=== PATIENT | male | born 1965 | race Caucasian/White ===

== ENCOUNTER 2017-05-08 00:05 | Emergency (ER) | payer MEDICARE, MEDICAID ==
[~2017-05-08] VITALS: Ht 188 cm; Wt 110.0 kg
[~2017-05-08 00:05] MED LIST: BACL10TA PO; CLON-527 PO; MORP30TA PO; PHE12.5T PO
[2017-05-08] MEDS ORDERED: ondansetron 4mg rapidly disintigrating tab PO ONE (00:20)
[2017-05-08] MEDS ORDERED: cloNIDine 0.1 mg tablet PO ONE (00:20)
[2017-05-08] MEDS ORDERED: ONDA8TAB9 PO (00:22)
[2017-05-08] MEDS ORDERED: CLON-529 PO (00:22)
[2017-05-08 01:15] VITALS: BP 112/67
== END 2017-05-08 01:43 | disposition home or self-care (01) ==
LOC: ER 00:06
DX: F11.23 Opioid dependence with withdrawal (principal); G89.29 Other chronic pain; J45.909 Unspecified asthma, uncomplicated; Z88.8 Allergy status to other drugs, medicaments and biological substances; Z91.040 Latex allergy status
CPT/HCPCS: 99284

== ENCOUNTER 2019-04-23 22:30 | Emergency (ER) | payer MEDICAID, MEDICARE ==
[~2019-04-23] VITALS: Ht 188 cm; Wt 113.6 kg
[~2019-04-23 22:30] MED LIST changes: +CLON-529 PO; +ONDA8TAB9 PO; -PHE12.5T PO; +PROM12.512 PO
[2019-04-23 22:33] VITALS: BP 166/115
[2019-04-23] MEDS ORDERED: ondansetron 4mg rapidly disintigrating tab PO STA (22:43)
[2019-04-23] MEDS ORDERED: ondansetron 4mg rapidly disintigrating tab PO ONE (23:05)
[2019-04-23] MEDS ORDERED: cloNIDine 0.1 mg tablet PO ONE (23:10)
[2019-04-23] MEDS ORDERED: ketorolac trometh. 30mg/ml inj. IM ONE (23:10)
[2019-04-24] MEDS ORDERED: proCHLORperazine 10 MG/2 ml inj IM ONE (00:50)
[2019-04-24] MEDS ORDERED: ONDA8TAB13 PO (01:02)
== END 2019-04-24 01:18 | disposition home or self-care (01) ==
LOC: ER 22:30
DX: F11.23 Opioid dependence with withdrawal (principal); J45.909 Unspecified asthma, uncomplicated; G89.29 Other chronic pain; Z98.890 Other specified postprocedural states; Z91.040 Latex allergy status; Z88.8 Allergy status to other drugs, medicaments and biological substances; Z79.899 Other long term (current) drug therapy
CPT/HCPCS: 96372; 99284; J0780; J1885

== ENCOUNTER 2024-07-19 20:13 | Emergency (ER) | payer MEDICARE ==
[~2024-07-19] VITALS: Ht 188 cm; Wt 116.3 kg
[~2024-07-19 20:13] MED LIST changes: +ONDA-245 PO
[2024-07-19 20:53] LABS: BASOPHILS # (AUTO) 0.1 X10'3 (0-0.2); BASOPHILS % (AUTO) 0.5 % (0-1); EOSINOPHILS # (AUTO) 0.2 X10'3 (0-0.9); EOSINOPHILS % (AUTO) 1.7 % (0-6); HEMATOCRIT 50.1 % (42.0-52.0); LYMPHOCYTES # (AUTO) 4.8 X10'3 (1.1-4.8); LYMPHOCYTES % (AUTO) 40.6 % (21-51); MEAN CORPUSCULAR HEMOGLOBIN 30.5 PG (27.0-31.0); MEAN CORPUSCULAR VOLUME 89.8 FL (78-98); MONOCYTES # (AUTO) 0.9 X10'3 (0-0.9); MONOCYTES % (AUTO) 7.8 % (2-12); NEUTROPHILS # (AUTO) 5.9 X10'3 (1.8-7.7); NEUTROPHILS % (AUTO) 49.4 % (42-75); PLATELET COUNT 307 X10'3 (140-440); RED BLOOD COUNT 5.58 X10'6 (4.70-6.10); RED CELL DISTRIBUTION WIDTH 13.3 % (11.5-14.5); WHITE BLOOD COUNT 11.9 X10'3 (4.5-11.0)
[2024-07-19] MEDS ORDERED: LEVO125T8 PO (20:53)
[2024-07-19] MEDS ORDERED: TRAM50TA2 PO (20:53)
[2024-07-19 21:09] LABS: ALANINE AMINOTRANSFERASE 39 U/L (12-78); ALBUMIN/GLOBULIN RATIO 1.1 (1.1-1.5); ALKALINE PHOSPHATASE 101 IU/L (46-116); ANION GAP 5 (8-16); ASPARTATE AMINO TRANSFERASE 22 U/L (10-37); BILIRUBIN,TOTAL 0.7 MG/DL (0.1-1.0); BLOOD UREA NITROGEN 11 MG/DL (7-18); BUN/CREATININE RATIO 9.2 (10.0-20.0); CHLORIDE 104 MMOL/L (99-107); CREATININE 1.19 MG/DL (0.60-1.10); GLUCOSE 110 MG/DL (70-104); SODIUM 141 MMOL/L (135-145); TOTAL CARBON DIOXIDE 32.1 MMOL/L (24-32); TOTAL PROTEIN 7.6 G/DL (6.4-8.2); eCRCL 78 ML/MIN; eGFR 63 ML/MIN
[2024-07-19 21:17] LABS: PRO BRAIN NATRIURETIC PEPTIDE 51 PG/ML (0-125)
[2024-07-19 21:18] LABS: POTASSIUM 3.8 MMOL/L (3.5-5.1)
[2024-07-20 01:07] VITALS: BP 139/89; PULSE 88; RESP 16; TEMP 97.9; O2SAT 99
== END 2024-07-20 01:12 | disposition left against medical advice (07) ==
LOC: ER 20:14
DX: R07.9 Chest pain, unspecified (principal); J45.909 Unspecified asthma, uncomplicated
CPT/HCPCS: 36415; 71045; 80053; 83880; 84484; 85025; 93005; 99285; J7030